=== PATIENT | female | born 1945 | race Caucasian/White ===

== ENCOUNTER 2016-12-27 05:50 | Day surgery (SDC) | payer MEDICARE, OTHER ==
[2016-12-26 09:53] VITALS: BMI 39.0
[2016-12-27] VITALS (10 sets, daily range): BP systolic 108–156; BP diastolic 55–65; PULSE 56–58; RESP 14–18; Ht 165.1 cm; Wt 99.7 kg
[~2016-12-27] VITALS: Ht 165.1 cm; Wt 99.7 kg
[2016-12-27] MEDS ORDERED: CEFAZOLIN 1 GM/50 ML (PMX) 50 ML IVPB SCH (06:00)
[2016-12-27] MEDS ORDERED: CEFAZOLIN 1 GM INJ ONE (07:00)
[2016-12-27] MEDS ORDERED: MYRBETRIQ 25MG (07:08)
[2016-12-27] MEDS ORDERED: IBAN150T7 PO (07:21)
[2016-12-27] MEDS ORDERED: ATEN50TA PO (07:21)
[2016-12-27] MEDS ORDERED: ASPI81TA3 PO (07:21)
[2016-12-27] MEDS ORDERED: ESCI5SOL PO (07:21)
[2016-12-27] MEDS ORDERED: AMLO1CAP12 PO (07:21)
[2016-12-27] MEDS ORDERED: CRES10 PO (07:21)
[2016-12-27] MEDS ORDERED: ICOS1CAP PO (07:21)
[2016-12-27] MEDS ORDERED: QUET25TA33 PO (07:21)
[2016-12-27] MEDS ORDERED: DICL100G37 TOP (07:22)
[2016-12-27] MEDS ORDERED: NAPR500T8 PO (07:24)
[2016-12-27] MEDS ORDERED: MEMA28CA PO (07:26)
[2016-12-27] MEDS ORDERED: TRAM50TA2 PO (07:26)
[2016-12-27] MEDS ORDERED: DEXL60CA2 PO (07:26)
[2016-12-27] MEDS ORDERED: LIDOCAINE 1% (MPF) 30 ML INJ ONE (07:34)
[2016-12-27] MEDS ORDERED: PROPOFOL 20 ML ONE (07:39)
[2016-12-27] MEDS ORDERED: LIDOCAINE 2% (SDV) 5 ML INJ ONE (07:39)
[2016-12-27] MEDS ORDERED: MIDAZOLAM 1 MG/ML 2 ML INJ ONE (07:39)
[2016-12-27] MEDS ORDERED: FENTAnyl 50 MCG/ML VIAL ONE (07:39)
[2016-12-27] MEDS ORDERED: DIPHENHYDRAMINE 50 MG INJ IV PRN (08:00)
[2016-12-27] MEDS ORDERED: HYDROmorphONE (0.2 MG/ML) 10ML SYG IV PRN (08:00)
[2016-12-27] MEDS ORDERED: MEPERIDINE 25 MG INJ IV PRN (08:00)
[2016-12-27] MEDS ORDERED: FENTAnyl 50 MCG/ML VIAL IV PRN (08:00)
[2016-12-27] MEDS ORDERED: OXYCODONE/ACETAMINOPHEN (5/325) TAB PO PRN (08:00)
[2016-12-27] MEDS ORDERED: PROCHLORPERAZINE 10 MG INJ IV PRN (08:00)
[2016-12-27] MEDS ORDERED: ONDANSETRON 4 MG INJ IV PRN (08:00)
[2016-12-27] MEDS ORDERED: BUPIVACAINE 0.5% (SDV) 30 ML INJ ONE (08:04)
[2016-12-27] MEDS ORDERED: DEXAMETHASONE 4 MG/ML 1 ML INJ ONE (08:04)
[2016-12-27] MEDS ORDERED: ONDANSETRON 4 MG INJ ONE (08:05)
[2016-12-27] MEDS ORDERED: HYDROCODONE/APAP (7.5/325) TAB PO ONE (09:00)
--- NOTE | 2016-12-27 10:24 | HPN ---
Date/Time of Note Date/Time of Note DATE: 12/27/16 TIME: 10:23 Interval H&P Admission Note Pt. seen H&P reviewed: No system changes NIRAV MCGEE DPM Dec 27, 2016 10:24
--- NOTE | 2016-12-27 10:38 | OPR ---
DATE OF OPERATION: 12/27/2016 SURGEON: Hunter Sanchez MD PREOPERATIVE DIAGNOSIS: Hammertoe deformity, left foot fifth toe. POSTOPERATIVE DIAGNOSIS: Hammertoe deformity, left foot fifth toe. OPERATION PERFORMED: Arthroplasty of PIPJ fifth toe, left foot. DESCRIPTION OF PROCEDURE: The patient was brought to the OR and placed in the supine position on th e operating room table. Anesthesia was achieved using MAC and local with 10 mL of lidocaine 1% plai n. The ankle was then wrapped several times with Webril and tourniquet was placed over the Webril. The foot was then prepped and draped in the usual sterile fashion and tourniquet was inflated to 25 0 mmHg. Attention was then directed to the dorsal aspect of the fifth toe, left foot. Two semielliptical in cisions were made over the PIPJ fifth toe. The head of the proximal phalanx was released from surro unding soft tissue and resected in toto using bone cutter. The area was then rasped smooth and then flushed with copious amount of normal saline. Next, extensor tendon was reattached and subcutaneou s closure was obtained and skin closure using 4-0 nylon in a simple interrupted fashion. Surgical s ite was then infiltrated with 5 mL of 0.5% Marcaine plain and 1 mL of dexamethasone phosphate. The surgical site was then covered with Adaptic, 4 x 4s and Dutch in a compressive fashion. Patient tolerated anesthesia and procedure well. The tourniquet was then deflated and immediate cap illary refill was noted to all digits of the left foot. The patient tolerated anesthesia and proced ure well and left the OR for recovery room with vital signs stable and neurovascular status intact. Dictated By: HUNTER LEDESMA/ÁNGELA Conf#: [id number] DID#: [id number]
--- NOTE | 2016-12-27 17:27 | RADRPT ---
Vent Rate: 60 bpm RR Interval: 0 msec OH Interval: 208 msec QRS Duration: 82 msec QT Interval: 422 msec QTC Interval: 422 msec P-R-T [place]: 38 - 16 - 31 degrees Normal sinus rhythm Cannot rule out Anterior infarct , age undetermined Abnormal ECG Electronically Signed By: Silvio Garcia [id number]
== END 2016-12-27 11:00 | disposition home or self-care (01) ==
LOC: SDS 05:50
PROVIDERS: ATTEND Podiatrist
DX: M20.42 Other hammer toe(s) (acquired), left foot (principal); I10 Essential (primary) hypertension; E78.5 Hyperlipidemia, unspecified; F41.8 Other specified anxiety disorders
CPT/HCPCS: 88304; 88311; 93005; J0690; J1100; J2250; J2405; J3010